=== PATIENT | female | born 1995 | race Caucasian/White ===

== ENCOUNTER 2019-03-07 19:57 | Inpatient (IN) | payer MEDICAID ==
[~2019-03-07] VITALS: Ht 162.6 cm; Wt 65.8 kg
[2019-03-07 20:23] VITALS: BP 136/89
--- NOTE | 2019-03-07 20:33 | NUR ---
PT AMBULATES WITH STEADY GAIT TO RR TO PROVIDE URINE SAMPLE. INSTRUCTED TO RETURN TO BED 12.
--- NOTE | 2019-03-07 21:09 | NUR ---
PATIENT PRESENTS TO ED C/O 11/07 CONSTANT EPIGASTRIC PAIN ACCOMPANIED BY UPPER BACK PAIN WITH N/V X 2 WEEKS. PT ALSO STATES "A FAMILY MEMBER NOTICED THAT MY EYES AND SKIN LOOKED YELLOW ABOUT A WEEK AND A HALF AGO". PT DENIES ANY PMH OR LIVER ISSUES. ALSO REPORTING DARK URINE X 2 WEEKS. PMH-- DENIES RX-- DENIES; SKIN IS PINK/WARM/DRY; AAOX4 WITH EVEN AND STEADY GAIT; LUNGS CLEAR BL; HR EVEN AND REGULAR; PT DENIES ANY FEVER, CP, SOB, OR COUGH AT THIS TIME; VSS; PATIENT POSITIONED FOR COMFORT; HOB ELEVATED; BEDRAILS UP X2; BED DOWN. ER MD MADE AWARE OF PT STATUS.
[2019-03-07 21:20] LABS: BASOPHILS % (AUTO) 0.4 % (0.0-2.0); EOSINOPHILS # (AUTO) 0.1 K/uL (0-0.4); EOSINOPHILS % (AUTO) 1.2 % (0.0-4.0); LYMPHOCYTES # (AUTO) 1.4 K/uL (2.5-16.5); LYMPHOCYTES % (AUTO) 17.2 % (20.5-51.1); MEAN CORPUSCULAR HEMOGLOBIN 27 pg (27-31); MEAN CORPUSCULAR HGB CONC 33 g/dL (33-37); MEAN CORPUSCULAR VOLUME 82.1 fL (80-94); MONOCYTES # (AUTO) 0.4 K/uL (0.8-1.0); MONOCYTES % (AUTO) 5.2 % (1.7-9.3); NEUTROPHILS # (AUTO) 6.1 K/uL (1.8-7.7); PLATELET COUNT (AUTO) 281 K/uL (140-450); RED BLOOD CELL COUNT(AUTO) 4.87 MIL/uL (4.20-5.40); RED CELL DISTRIBUTION WIDTH 19.1 % (11.6-13.7)
[2019-03-07 21:31] LABS: CARBON DIOXIDE 30.5 mmol/L (21-32); CREATININE 0.6 mg/dL (0.6-1.3); POTASSIUM 3.5 mmol/L (3.5-5.1)
[2019-03-07 21:35] LABS: BILIRUBIN,URINE 3+ (NEGATIVE); BLOOD, URINE NEGATIVE (NEGATIVE); LEUKOCYTE ESTERASE ,URINE 1+ (NEGATIVE); NITRITE, URINE POSITIVE (NEGATIVE); UGLUCOSE TRACE (NEGATIVE)
[2019-03-07 21:37] LABS: ALBUMIN 3.9 g/dL (3.4-5.0); TOTAL BILIRUBIN 9.4 mg/dL (0.0-1.0)
[2019-03-07] MEDS ORDERED: MORPHINE SULFATE 4 MG/ML SYR IVP ONE (21:55)
[2019-03-07] MEDS ORDERED: NACL 0.9% 1,000 ML IV ONE (21:55)
[2019-03-07] MEDS ORDERED: ONDANSETRON 4 MG/2 ML VIAL IVP ONE (21:55)
[2019-03-07] MEDS ORDERED: MORPHINE SULFATE 2 MG/ML SYR IVP PRN (22:05)
[2019-03-07] MEDS ORDERED: HYDROcodone/APAP 7.5/325 MG 1 TAB PO PRN (22:05)
[2019-03-07] MEDS ORDERED: ACETAMINOPHEN 325 MG TAB PO PRN (22:05)
[2019-03-07] MEDS ORDERED: DOCUSATE SODIUM 100 MG GELCAP PO PRN (22:05)
[2019-03-07 22:07] LABS: APPEARANCE,URINE CLOUDY (CLEAR); COLOR,URINE ORANGE (YELLOW)
[2019-03-07 22:09] LABS: RBC,URINE 0-5 /HPF (0-5); WBC,URINE 16-25 (MOD) /HPF (0-5)
[2019-03-07] MEDS ORDERED: cefTRIAXone 1,000 MG VIAL ONE (22:25)
--- NOTE | 2019-03-07 22:45 | NUR ---
RECEIVED REPORT FROM ED NURSE. PATIENT IS AWAKE, ALERT, AND COOPERATIVE. ADMITTING DIAGNOSIS PANCREATITIS. RESPIRATION EVEN UNLABORED ON ROOM AIR. NO DISTRESS NOTED. SKIN IS WARM AND DRY. IV PATENT AND INTACT. HEART RATE REGULAR. S1 AND S2 NOTED. LUNGS SOUNDS CLEAR ON AUSCULTATION. BOWEL SOUNDS PRESENT IN ALL 4 QUADRANTS. ABDOMEN SOFT AND TENDER. MRSA SCREEN DONE. VITALS WERE TAKEN. PATIENT ORIENT TO ROOM, STAFF, AND CALL LIGHT. ALL SAFETY MEASURES IN PLACE. PLAN OF CARE WAS DISCUSSED. BED IS AT LOW POSITION. CALL LIGHT WITHIN REACH AND VERBALIZES ITS USE. WILL CONTINUE TO MONITOR.
--- NOTE | 2019-03-07 22:54 | NUR ---
Patient will be admitted to care of CHERELLE. Admited to MED/SURG. Will go to room 112B. Belongings list completed. Report to JR.
[2019-03-07 22:58] LABS: PROTHROMBIN TIME 9.5 secs (10.8-13.4)
[2019-03-07 23:05] LABS: BARBITURATE, URINE NEG. ng/ml (NEG <=200); BENZODIAZEPINE, URINE NEG. ng/mL (NEG <=200); CANNABINOID, URINE NEG. ng/mL (NEG <=50); COCAINE, URINE NEG. ng/mL (NEG <=300); OPIATE, URINE NEG. ng/mL (NEG <=2000); PHENCYCLIDINE SCREEN,URINE NEG. ng/mL (NEG <=25)
[2019-03-07 23:11] VITALS: BP 132/85
[2019-03-07 23:23] LABS: GAMMA GLUTAMYL TRANSFERASE 1531 U/L (7-51)
[2019-03-07 23:24] LABS: ACETAMINOPHEN < 0.5 ug/ml (10-30); SALICYLATE < 2.8 mg/dL (2.8-20.0)
[2019-03-07 23:26] LABS: CHOL/HDL RATIO 24.8 (1-4.5); FREE T4 (FREE THYROXINE) 1.03 ng/dL (0.76-1.46); MAGNESIUM 1.9 mg/dL (1.8-2.4); PHOSPHORUS 3.8 mg/dL (2.5-4.9); THYROID STIMULATING HORMONE 1.48 uIU/mL (0.34-3.74)
[2019-03-08] MEDS: NACL 0.9% 1,000 ML IV SCH ×5 (00:13→23:42)
--- NOTE | 2019-03-08 00:28 | NUR ---
CHECKED ON PATIENT. PATIENT TALKING ON THE PHONE. NO DISTRESS NOTED. WILL CONTINUE TO MONITOR.
[2019-03-08] MEDS ORDERED: LACTULOSE 20 GM/30 ML UDC PO ONE (02:05)
--- NOTE | 2019-03-08 03:55 | NUR ---
CHECKED ON PATIENT. PATIENT SLEEPING RESPIRATION EVEN UNLABORED ON ROOM AIR. NO DISTRESS NOTED. WILL CONTINUE TO MONITOR.
--- NOTE | 2019-03-08 05:45 | NUR ---
PATIENT LEFT THE FACILITY FOR CT SCAN. PATIENT IN STABLE CONDITION.
--- NOTE | 2019-03-08 06:15 | NUR ---
PATIENT IS BACK ON THE FLOOR IN STABLE CONDITION. NO DISTRESS NOTED. WILL CONTINUE TO MONITOR.
--- NOTE | 2019-03-08 07:24 | NUR ---
ENDORSED PATIENT TO DAY SHIFT NURSE. PATIENT IN STABLE CONDITION.
[2019-03-08 07:27] LABS: BASOPHILS % (AUTO) 0.4 % (0.0-2.0); EOSINOPHILS # (AUTO) 0.1 K/uL (0-0.4); EOSINOPHILS % (AUTO) 1.9 % (0.0-4.0); HEMATOCRIT 36.9 % (36-48); HEMOGLOBIN 11.8 g/dL (12.0-16.0); LYMPHOCYTES # (AUTO) 1.4 K/uL (2.5-16.5); LYMPHOCYTES % (AUTO) 21.7 % (20.5-51.1); MEAN CORPUSCULAR HEMOGLOBIN 27 pg (27-31); MEAN CORPUSCULAR HGB CONC 32 g/dL (33-37); MEAN CORPUSCULAR VOLUME 83.9 fL (80-94); MONOCYTES # (AUTO) 0.4 K/uL (0.8-1.0); MONOCYTES % (AUTO) 6.1 % (1.7-9.3); NEUTROPHILS # (AUTO) 4.5 K/uL (1.8-7.7); NEUTROPHILS % (AUTO) 69.9 % (42.2-75.2); PLATELET COUNT (AUTO) 247 K/uL (140-450); RED CELL DISTRIBUTION WIDTH 18.2 % (11.6-13.7); WHITE BLOOD COUNT (AUTO) 6.5 K/uL (4.8-10.8)
--- NOTE | 2019-03-08 07:28 | NUR ---
RECEIVED REPORT FROM FREIGHT REPRESENTATIVE RN. PATIENT IS AAOX4 AND COOPERATIVE. RESPIRATION EVEN UNLABORED ON ROOM AIR. NO DISTRESS NOTED. SKIN IS WARM AND DRY. IV PATENT AND INTACT. LUNGS SOUNDS CLEAR ON AUSCULTATION. BOWEL SOUNDS PRESENT IN ALL 4 QUADRANTS. ABDOMEN SOFT AND TENDER. PATIENT ORIENT TO ROOM, STAFF, AND CALL LIGHT. ALL SAFETY MEASURES IN PLACE. PLAN OF CARE WAS DISCUSSED AND PT VERBALIZED UNDERSTANDING. BED IS AT LOW POSITION. CALL LIGHT WITHIN REACH. WILL MONITOR PT CLOSELY.
[2019-03-08 08:05] VITALS: BP 112/74
[2019-03-08 08:07] LABS: POTASSIUM 3.2 mmol/L (3.5-5.1)
[2019-03-08 08:08] LABS: ANION GAP 13.7 (8-16); CARBON DIOXIDE 25.5 mmol/L (21-32); CREATININE 0.6 mg/dL (0.6-1.3)
[2019-03-08 08:09] LABS: ALBUMIN 3.3 g/dL (3.4-5.0)
--- NOTE | 2019-03-08 08:50 | NUR ---
PATIENT HAS BEEN SCREENED AND CATEGORIZED MODERATE NUTRITION RISK. PATIENT WILL BE SEEN WITHIN 3-5 DAYS OF ADMISSION. 03/10/19 03/12/[address]
[2019-03-08] MEDS: LACTOBACILLUS RHAMNOSUS GG 1 EACH CAP PO SCH (09:05)
[2019-03-08] MEDS: ATORVASTATIN 20 MG TAB PO SCH (09:05)
--- NOTE | 2019-03-08 09:11 | NUR ---
ADMINISTERED MORNING MEDS TO PT. ALL NEEDS MET. WILL CONTINUE TO ROUND FREQUENTLY ON PT.
[2019-03-08 11:39] LABS: AMYLASE 1130 U/L (25-115); LIPASE 9230 U/L (73-393)
--- NOTE | 2019-03-08 11:56 | NUR ---
PT RESTING IN BED. ALL NEEDS MET. SIGNIFICANT OTHER AT BEDSIDE. WILL CONTINUE TO ROUND FREQUENTLY ON PT. BED IN LOW POSITION, CALL LIGHT WITHIN REACH.
--- NOTE | 2019-03-08 13:42 | NUR ---
PT RESTING IN BED. ALL NEEDS MET. WILL CONTINUE TO ROUND FREQUENTLY ON PT.
--- NOTE | 2019-03-08 14:50 | NUR ---
PT TAKEN TO OR FOR ERCP PROCEDURE. PT LEFT IN STABLE CONDITION.
[2019-03-08] MEDS ORDERED: MIDAZOLAM 2 MG/2 ML VIAL ONE (14:54)
[2019-03-08] MEDS ORDERED: KETAMINE 500 MG/5 ML VIAL ONE (14:54)
[2019-03-08] MEDS ORDERED: LABETALOL 100 MG/20 ML VIAL ONE (15:34)
[2019-03-08] MEDS ORDERED: HYDROmorphone 1 MG/ML AMP IVP PRN (15:55)
[2019-03-08] MEDS: ONDANSETRON 4 MG/2 ML VIAL IM/IVP PRN ×2 (17:35→21:42)
--- NOTE | 2019-03-08 19:39 | NUR ---
ENDORSED PT TO MOTORCYCLE REPAIRER FOR CONTINUITY OF CARE. PT IN STABLE CONDITION AT THIS TIME.
--- NOTE | 2019-03-08 19:40 | NUR ---
RECD. RESTING IN BED SLEEPING COMFORTABLY, EASILY WAKES UP BUT SEEMS STILL DROWSY. ERCP DONE TODAY PER ENDORSED BY AM NURSE. NPO FOR 10 HOURS FOR POSSIBLE CHOLECYSTECTOMY IN AM. RESPIRATION EVEN AND UNLABORED. IV OF NS AT 160 ML/HR INFUSING LEFT AC G20. NO APPEARANCE OF PAIN NOTED 0. VS STABLE. AT THE BEDSIDE.
--- NOTE | 2019-03-08 19:40 | NUR ---
RECEIVED PT FROM RECOVERY ROOM, PT AAOX4, 12/07 PAIN LEVEL AT THIS TIME, VITAL SIGNS MONITORED, SAT-95% ON ROOM AIR, WILL MEDICATE PRN, WITH X4 ABDOMINAL INCISION COVERED WITH BAND-AID, DRY AND INTACT, NO SIGNS OF BLEEDING NOTED, RESUMED IVF, PLAN OF CARE DISCUSSED WITH PT AND SIGNIFICANT OTHER AT BEDSIDE, CALL LIGHT WITHIN REACH. Addendum: 03/10/19 at 0219 by Prieto Brantley RN CHARTED WRONG TIME
--- NOTE | 2019-03-08 21:20 | NUR ---
AWAKE, A/OX4. PLAN OF CARE FOR THE SHIFT DISCUSSED. VERBALIZED UNDERSTANDING. FEELS NAUSEATED, WILL BE MEDICATED ORDERED.ASSISTED TO BR TO VOID, BACK TO BED AFTER VOIDING. SAFETY MAINTAINED.
--- NOTE | 2019-03-08 21:42 | NUR ---
MEDICATED WITH ZOFRAN 4 MG. IVP BY EDIN SIMPSON.
--- NOTE | 2019-03-08 22:15 | NUR ---
RESTING IN BED, STATED JUST A LITTLE NAUSEATED AT THIS TIME. DR. JAFFE CAME AND SPOKE WITH PATIENT, WILL FOLLOW UP WITH ANY NEW ORDER.
--- NOTE | 2019-03-08 22:30 | NUR ---
DR. JAFFE CAME AND SPOKE WITH PATIENT, REGARDING PLAN OF LAP CHOLECYSTECTOMY.
--- NOTE | 2019-03-08 23:00 | NUR ---
NPO FOR SURGERY TOMORROW PER MD ORDER. PATIENT VERBALIZED UNDERSTANDING.
[2019-03-09] VITALS: BP 104/68
--- NOTE | 2019-03-09 00:45 | NUR ---
Patient's Plan of Care was discussed and reviewed with R DEVELOPER: REGINALDO DONG
--- NOTE | 2019-03-09 01:00 | NUR ---
SLEEPING COMFORTABLY IN BED.
--- NOTE | 2019-03-09 03:00 | NUR ---
IN BED, SLEEPING. NO DISTRESS NOTED.
[2019-03-09] MEDS: NACL 0.9% 1,000 ML IV SCH ×3 (05:20→19:50)
[2019-03-09 06:07] LABS: HEPATITIS A ANTIBODY IGM Negative (Negative); HEPATITIS B CORE AB TOTAL Negative (Negative); HEPATITIS B SURFACE ANTIBODY Reactive (.); HEPATITIS B SURFACE ANTIGEN Negative (Negative)
[2019-03-09 06:07] LABS: T4 (THYROXINE) 9.7 ug/dL (4.5-12.0)
--- NOTE | 2019-03-09 06:35 | NUR ---
ABLE TO SLEEP WELL. CONDITION REMAIN STABLE. WILL ENDORSED TO AM NURSE FOR CONTINUITY OF CARE.
[2019-03-09 07:21] LABS: BASOPHILS % (AUTO) 0.2 % (0.0-2.0); EOSINOPHILS % (AUTO) 0.5 % (0.0-4.0); HEMATOCRIT 34.3 % (36-48); HEMOGLOBIN 10.9 g/dL (12.0-16.0); LYMPHOCYTES # (AUTO) 1.6 K/uL (2.5-16.5); LYMPHOCYTES % (AUTO) 24.4 % (20.5-51.1); MEAN CORPUSCULAR HEMOGLOBIN 27 pg (27-31); MEAN CORPUSCULAR HGB CONC 32 g/dL (33-37); MEAN CORPUSCULAR VOLUME 84.7 fL (80-94); MONOCYTES # (AUTO) 0.4 K/uL (0.8-1.0); MONOCYTES % (AUTO) 6.4 % (1.7-9.3); NEUTROPHILS # (AUTO) 4.4 K/uL (1.8-7.7); NEUTROPHILS % (AUTO) 68.5 % (42.2-75.2); PLATELET COUNT (AUTO) 261 K/uL (140-450); RED BLOOD CELL COUNT(AUTO) 4.05 MIL/uL (4.20-5.40); RED CELL DISTRIBUTION WIDTH 16.5 % (11.6-13.7); WHITE BLOOD COUNT (AUTO) 6.4 K/uL (4.8-10.8)
--- NOTE | 2019-03-09 07:35 | NUR ---
RECEIVED BEDSIDE REPORT FROM PM RN PT APPEARS STABLE AND IN NO APPARENT DISTRESS. ALL SAFETY MEASURES ARE IN PLACE WILL CONTINUE TO MONITOR
[2019-03-09 07:57] LABS: ANION GAP 15.8 (8-16); CARBON DIOXIDE 25.2 mmol/L (21-32); CREATININE 0.6 mg/dL (0.6-1.3)
[2019-03-09 08:07] LABS: ALBUMIN 3.2 g/dL (3.4-5.0); BILIRUBIN,DIRECT 2.2 mg/dL (0.0-0.3); MAGNESIUM 1.6 mg/dL (1.8-2.4); PHOSPHORUS 4.3 mg/dL (2.5-4.9); TOTAL BILIRUBIN 3.2 mg/dL (0.0-1.0)
[2019-03-09 08:15] VITALS: BP 111/73
[2019-03-09 08:22] LABS: BILIRUBIN,DIRECT 2.2 mg/dL (0.0-0.3); TOTAL BILIRUBIN 3.2 mg/dL (0.0-1.0)
[2019-03-09] MEDS: ATORVASTATIN 20 MG TAB PO SCH (08:42)
[2019-03-09] MEDS: LACTOBACILLUS RHAMNOSUS GG 1 EACH CAP PO SCH (08:42)
--- NOTE | 2019-03-09 09:23 | NUR ---
FREQUENT ROUNDING ON PT PT APPEARS STABLE AND IN NO APPARENT DISTRESS.
[2019-03-09] MEDS ORDERED: POTASSIUM CHLORIDE 10 MEQ TABER PO SCH (10:30)
[2019-03-09] MEDS ORDERED: POTASSIUM CHLORIDE 40 MEQ, LIDOCAINE MPF 1% 25 MG in NACL 0.9% 250 ML IV SCH (11:00)
--- NOTE | 2019-03-09 11:35 | NUR ---
FREQUENT ROUNDING ON PT PT APPEARS STABLE AND IN NO APPARENT DISTRESS, ALL SAFETY MEASURES ARE IN PLACE WILL CONTINUE TO MONITOR. WILL CONTINUE TO MONITOR
--- NOTE | 2019-03-09 13:46 | NUR ---
FREQUENT ROUNDING ON PT PT APPEARS STABLE AND IN NO APPARENT DISTRESS. ALL SAFETY MEASURES ARE IN PLACE WILL CONTINUE TO MONITOR.
--- NOTE | 2019-03-09 16:42 | NUR ---
PT TAKEN OFF THE UNIT TO OR FOR PROCEDURE. PT AWAKE IN BED PT APPEARS STABLE AND IN NO APPARENT DISTRESS. CONSENT IS OBTAINED AND IN CHART. PREOPERATIVE CHECK LIST IS COMPLETED. PT FAMILY MEMBER IS AWARE AND WAS AT BEDSIDE.
[2019-03-09] MEDS: BUPIVACAINE-MPF/EPI 0.5% 30 ML VIAL INJ ONE ×2 (17:05→18:34)
[2019-03-09] MEDS ORDERED: DESFLURANE 240 ML BTL INH ONE (17:12)
[2019-03-09] MEDS ORDERED: ROCURONIUM 50 MG/5 ML VIAL IV ONE (17:12)
[2019-03-09] MEDS ORDERED: GLYCOPYRROLATE 0.2 MG/ML VIAL ONE (17:12)
[2019-03-09] MEDS ORDERED: DEXAMETHASONE 4 MG/ML VIAL ONE (17:12)
[2019-03-09] MEDS ORDERED: NEOSTIGMINE 1:1000 10 MG/10 ML VIAL ONE (17:12)
[2019-03-09] MEDS ORDERED: KETOROLAC 30 MG/ML VIAL ONE (17:12)
[2019-03-09] MEDS ORDERED: PROPOFOL 200 MG/20 ML VIAL IV ONE (17:12)
[2019-03-09] MEDS ORDERED: fentaNYL 0.05 MG/ML VIAL ONE (17:15)
[2019-03-09] MEDS ORDERED: HYDROmorphone PFS 2 MG/ML SYR ONE (17:15)
[2019-03-09] MEDS ORDERED: ONDANSETRON 4 MG/2 ML VIAL IVP PRN (17:35)
[2019-03-09] MEDS ORDERED: HYDROmorphone 1 MG/ML AMP IVP PRN ×2 (17:35→18:45)
[2019-03-09 17:44] VITALS: BP 114/68
[2019-03-09] MEDS ORDERED: MORPHINE SULFATE 4 MG/ML SYR IV PRN (18:45)
[2019-03-09] MEDS ORDERED: ONDANSETRON 4 MG/2 ML VIAL IV PRN (18:45)
--- NOTE | 2019-03-09 19:23 | NUR ---
ENDORSED PT TO PM RN PT IS STILL OFF THE UNIT FOR PROCEDURE.
[2019-03-09] MEDS: MORPHINE SULFATE 2 MG/ML SYR IVP PRN (19:35)
--- NOTE | 2019-03-09 19:40 | NUR ---
RECEIVED PT FROM RECOVERY ROOM, PT AAOX4, 12/07 PAIN LEVEL AT THIS TIME, VITAL SIGNS MONITORED, SAT-95% ON ROOM AIR, WILL MEDICATE PRN, WITH X4 ABDOMINAL INCISION COVERED WITH BAND-AID, DRY AND INTACT, NO SIGNS OF BLEEDING NOTED, RESUMED IVF, PLAN OF CARE DISCUSSED WITH PT AND SIGNIFICANT OTHER AT BEDSIDE, CALL LIGHT WITHIN REACH.
[2019-03-09] MEDS: HYDROcodone/APAP 5/325 MG 1 TAB TAB PO PRN (21:31)
--- NOTE | 2019-03-09 22:00 | NUR ---
PT AMBULATED TO BR WITH STANDBY ASSIST, VOIDED FREELY, DUE HEPARIN SUB-Q ADMINISTERED WITH EDUCATION PROVIDED, TOLERABLE PAIN 08/07 AT THIS TIME, IVF INFUSING WELL, MONITORED CLOSELY.
[2019-03-10] VITALS: BP 116/60
--- NOTE | 2019-03-10 | NUR ---
PT SLEEPING, EASILY AROUSABLE, VITAL SIGNS STABLE, TOLERABLE PAIN AT THIS TIME, INSTRUCTED TO CALL WHEN PAIN GET WORST, IVF INFUSING WELL, SCD'S IN PLACE, CONTINUE TO MONITOR CLOSELY.
[2019-03-10] MEDS: NACL 0.9% 1,000 ML IV SCH ×4 (03:11→19:25)
[2019-03-10] MEDS: HYDROcodone/APAP 5/325 MG 1 TAB TAB PO PRN ×4 (04:15→23:09)
--- NOTE | 2019-03-10 04:15 | NUR ---
PT AWAKE, COMPLAINING OF ABDOMINAL PAIN, MEDICATED WITH NORCO PER PT PREFERENCE, IVF INFUSING WELL, ABDOMINAL DRESSING DRY AND INTACT, MONITORED CLOSELY.
[2019-03-10] MEDS: MORPHINE SULFATE 2 MG/ML SYR IVP PRN (06:38)
--- NOTE | 2019-03-10 06:40 | NUR ---
PT COMPLAINING OF PAIN, PER DR KIRBY ZAVALA TO GIVE MORPHINE IVP, PT AMBULATED FIRST TO BR WITH STEADY GAIT, VOIDED FREELY, NOT PASSING GAS YET, MEDICATED PRN WITH MORPHINE FOR 6/10 PAIN LEVEL, IVF INFUSING WELL, ABDOMINAL DRESSING DRY AND INTACT, MONITORED CLOSELY.
--- NOTE | 2019-03-10 07:15 | NUR ---
PT SLEEPING, NO SIGNS OF DISTRESS, REPORT GIVEN TO EDIN LUDWIG FOR CONTINUITY OF CARE.
[2019-03-10 07:33] LABS: BASOPHILS % (AUTO) 0.1 % (0.0-2.0); HEMATOCRIT 33.5 % (36-48); HEMOGLOBIN 10.7 g/dL (12.0-16.0); LYMPHOCYTES # (AUTO) 1.3 K/uL (2.5-16.5); LYMPHOCYTES % (AUTO) 15.1 % (20.5-51.1); MEAN CORPUSCULAR HEMOGLOBIN 27 pg (27-31); MEAN CORPUSCULAR HGB CONC 32 g/dL (33-37); MEAN CORPUSCULAR VOLUME 84.8 fL (80-94); MONOCYTES # (AUTO) 0.4 K/uL (0.8-1.0); MONOCYTES % (AUTO) 4.4 % (1.7-9.3); NEUTROPHILS # (AUTO) 7.1 K/uL (1.8-7.7); NEUTROPHILS % (AUTO) 80.4 % (42.2-75.2); PLATELET COUNT (AUTO) 295 K/uL (140-450); RED BLOOD CELL COUNT(AUTO) 3.95 MIL/uL (4.20-5.40); RED CELL DISTRIBUTION WIDTH 16.3 % (11.6-13.7); WHITE BLOOD COUNT (AUTO) 8.8 K/uL (4.8-10.8)
--- NOTE | 2019-03-10 07:42 | NUR ---
RECEIVED HAND OFF REPORT FROM PM RN PT APPEARS STABLE AND IN NO APPARENT DISTRESS. ALL SAFETY MEASURES ARE IN PLACE WILL CONTINUE TO MONITOR.
[2019-03-10 08:03] LABS: ANION GAP 14.9 (8-16); CREATININE 0.5 mg/dL (0.6-1.3); POTASSIUM 3.9 mmol/L (3.5-5.1)
[2019-03-10 08:05] LABS: ALBUMIN 3.1 g/dL (3.4-5.0); BILIRUBIN,DIRECT 1.9 mg/dL (0.0-0.3); TOTAL BILIRUBIN 2.4 mg/dL (0.0-1.0)
[2019-03-10 08:40] LABS: MAGNESIUM 1.7 mg/dL (1.8-2.4); PHOSPHORUS 4.6 mg/dL (2.5-4.9)
[2019-03-10] MEDS: ATORVASTATIN 20 MG TAB PO SCH (08:49)
[2019-03-10] MEDS: LACTOBACILLUS RHAMNOSUS GG 1 EACH CAP PO SCH (08:49)
[2019-03-10] MEDS ORDERED: IBUP-2213 PO (09:02)
[2019-03-10] MEDS ORDERED: MAGNESIUM OXIDE 400 MG TAB PO SCH (09:20)
--- NOTE | 2019-03-10 09:36 | NUR ---
FREQUENT ROUNDING ON PT PT APPEARS STABLE AND IN NO APPARENT DISTRESS. ALL SAFETY MEASURES ARE IN PLACE WILL CONTINUE TO MONITOR
--- NOTE | 2019-03-10 11:34 | NUR ---
FREQUENT ROUNDING ON PT PT APPEARS STABLE AND IN NO APPARENT DISTRESS. ALL SAFETY MEASURES ARE IN PLACE WILL CONTINUE TO MONITOR
--- NOTE | 2019-03-10 15:39 | NUR ---
FREQUENT ROUNDING ON PT PT APPEARS STABLE AND IN NO APPARENT DISTRESS. ALL SAFETY MEASURES ARE IN PLACE WILL CONTINUE TO MONITOR.
[2019-03-10 16:16] VITALS: BP 119/79
[2019-03-10] MEDS ORDERED: DOCU-299 PO (16:21)
[2019-03-10] MEDS ORDERED: HYDR-5122 PO (16:21)
--- NOTE | 2019-03-10 19:46 | NUR ---
ENDORSED PT TO PM RN PT APPEARS STABLE AND IN NO APPARENT DISTRESS. PT FAMILY AT BEDSIDE. ALL SAFETY MEASURES ARE IN PLACE
--- NOTE | 2019-03-10 19:47 | NUR ---
Received endorsement from AM shift RN; patient A/Ox4, able to make needs known, [place] speaking, ambulatory. Patient talking with ; introduced self, updated board. no SOB or distress noted, on room air. IV site noted on left antecubital, running IVF, asymptomatic. Bed in the lowest position, call light within reach. Initial assessment done. Will continue to monitor.
--- NOTE | 2019-03-10 21:51 | NUR ---
Due meds given, tolerated well.
--- NOTE | 2019-03-10 23:50 | NUR ---
Vitals taken, no SOB or distress noted.
[2019-03-11] VITALS: BP 119/72
[2019-03-11] MEDS: NACL 0.9% 1,000 ML IV SCH ×2 (00:24→06:21)
--- NOTE | 2019-03-11 02:20 | NUR ---
Rounds done; patient asleep on right lateral side, visible chest rise and fall noted.
--- NOTE | 2019-03-11 04:40 | NUR ---
Checks made; patient asleep, eyes closed, visible chest rise and fall noted.
--- NOTE | 2019-03-11 06:05 | NUR ---
Vitals stable, due meds given. Will endorse to AM shift RN for continuity of care.
--- NOTE | 2019-03-11 07:20 | NUR ---
RECEIVED BEDSIDE REPORT FROM OUTPATIENT SCHEDULER NURSE. PT IS ASLEEP, NO S/S OF ACUTE DISTRESS OR SOB. PT IS ON ROOM AIR, SKIN INTACT ASIDE FROM LAP BETZY ABD INCISIONS. IV SITE NOTED IN THE L AC 20 G, INFUSING NS 160 ML/HR. PT IS AMBULATORY. CALL LIGHT IS WITHIN REACH, WILL CONTINUE TO MONITOR.
[2019-03-11 07:33] LABS: ANION GAP 11.6 (8-16); CARBON DIOXIDE 25.8 mmol/L (21-32); CREATININE 0.5 mg/dL (0.6-1.3); POTASSIUM 3.4 mmol/L (3.5-5.1)
[2019-03-11 07:36] LABS: MAGNESIUM 1.5 mg/dL (1.8-2.4); PHOSPHORUS 3.1 mg/dL (2.5-4.9)
[2019-03-11 08:00] VITALS: BP 111/70
[2019-03-11] MEDS: LACTOBACILLUS RHAMNOSUS GG 1 EACH CAP PO SCH (08:59)
[2019-03-11] MEDS: HYDROcodone/APAP 5/325 MG 1 TAB TAB PO PRN (09:00)
[2019-03-11] MEDS: ATORVASTATIN 20 MG TAB PO SCH (09:00)
--- NOTE | 2019-03-11 09:05 | NUR ---
AM MEDS ADMINISTERED, PT TOLERATED WELL. ADMINISTERED PRN NORCO TAB FOR C/O ABD PAIN 10/07.
[2019-03-11 09:25] LABS: HEMATOCRIT 31.7 % (36-48); HEMOGLOBIN 10.3 g/dL (12.0-16.0); MEAN CORPUSCULAR HEMOGLOBIN 28 pg (27-31); MEAN CORPUSCULAR HGB CONC 32 g/dL (33-37); PLATELET COUNT (AUTO) 280 K/uL (140-450); RED BLOOD CELL COUNT(AUTO) 3.73 MIL/uL (4.20-5.40); RED CELL DISTRIBUTION WIDTH 16.1 % (11.6-13.7); WHITE BLOOD COUNT (AUTO) 5.4 K/uL (4.8-10.8)
[2019-03-11] MEDS ORDERED: INFLUENZA VACCINE QUAD 0.5 ML SYR IMVAC PRN (10:40)
--- NOTE | 2019-03-11 11:05 | NUR ---
PT HAS DC'D TO HOME. PT WAS GIVEN DC INSTRUCTIONS AND PRESCRIPTION. PT VERBALIZED UNDERSTANDING OF DC TEACHING. FLU VACCINE WAS ADMINISTERED UPON DC. IV AND WRIST BANDS REMOVED. PT LEFT WITH ALL HER BELONGINGS IN STABLE CONDITION, ACCOMPANIED BY SIGNIFICANT OTHER.
[2019-03-11 11:18] LABS: BASOPHILS % (MANUAL) 0 % (0-2); EOSINOPHILS % (MANUAL) 2 % (0-4); LYMPHOCYTES % (MANUAL) 42 % (20-46); MONOCYTES % (MANUAL) 5 % (5-12)
== END 2019-03-11 11:05 | disposition home or self-care (01) | DRG 263 ==
LOC: MED 19:57 → MTU 22:05
PROVIDERS: ADMIT Family Medicine; ATTEND Family Medicine
PROC: 0FC98ZZ Extirpation of Matter from Common Bile Duct, Via Natural or Artificial Opening Endoscopic (ICD-10-PCS; 2019-03-08)
PROC: BF101ZZ Fluoroscopy of Bile Ducts using Low Osmolar Contrast (ICD-10-PCS; 2019-03-08)
PROC: 0FT44ZZ Resection of Gallbladder, Percutaneous Endoscopic Approach (ICD-10-PCS; principal; 2019-03-09 16:30)
DX: K80.01 Calculus of gallbladder with acute cholecystitis with obstruction (principal); K65.9 Peritonitis, unspecified; K85.10 Biliary acute pancreatitis without necrosis or infection; N39.0 Urinary tract infection, site not specified; E78.5 Hyperlipidemia, unspecified
CPT/HCPCS: 36415; 71045; 76705; 80048; 80053; 80076; 80305; 81001; 82140; 82150; 82247; 82248; 82374; 82550; 82977; 83036; 83605; 83615; 83690; 83735; 83880; 84100; 84436; 84439; 84443; 84479; 84484; 85025; 85610; 85730; 86704; 86706; 86708; 86709; 86803; 86886; 86900; 86901; 87040; 87081; 87086; 87340; 88304; 93005; 96365; 96375; 99285; C1773; G0480; J0696; J1100; J1170; J1644; J1885; J2001; J2250; J2270; J2405; J2704; J2710; J3010; J3480; J3490; J7030; J7060; Q0092; Q9967